=== PATIENT | female | born 1985 | race Two or more races ===

== ENCOUNTER 2019-11-19 18:59 | Emergency (ER) | payer OTHER ==
[~2019-11-19] VITALS: Ht 172.7 cm; Wt 81.2 kg
[2019-11-19 19:31] VITALS: Ht 172.7 cm; Wt 81.2 kg
[2019-11-19 22:11] VITALS: BP 124/74
== END 2019-11-19 22:11 | disposition home or self-care (01) ==
LOC: ED 18:59
DX: S39.012A Strain of muscle, fascia and tendon of lower back, initial encounter (principal); Z90.89 Acquired absence of other organs; Z90.49 Acquired absence of other specified parts of digestive tract; V49.9XXA Car occupant (driver) (passenger) injured in unspecified traffic accident, initial encounter; Y93.I9 Activity, other involving external motion; Y92.413 State road as the place of occurrence of the external cause; Y99.8 Other external cause status
CPT/HCPCS: J1885; Q0162